=== PATIENT | female | born 2000 | race Two or more races ===

== ENCOUNTER 2024-07-31 20:40 | Outpatient (CLI) | payer OTHER ==
[~2024-07-31] VITALS: Ht 149.9 cm; Wt 57.3 kg
[2024-07-31 21:12] VITALS: BP 115/59
[2024-07-31] MEDS ORDERED: ASPI-428 PO (21:28)
[2024-07-31] MEDS ORDERED: HOME MED LIST COMPLETE! XX SCH (21:30)
[2024-07-31] MEDS: FLUCONAZOLE 100 MG TAB PO ONE (22:06)
== END 2024-07-31 22:00 | disposition home or self-care (01) ==
LOC: M LDO 20:40
PROVIDERS: ATTEND Specialist
DX: O23.592 Infection of other part of genital tract in pregnancy, second trimester (principal); B37.9 Candidiasis, unspecified; Z3A.21 21 weeks gestation of pregnancy
CPT/HCPCS: 76815; G0463

== ENCOUNTER 2024-09-01 15:58 | Emergency (ER) | payer OTHER ==
[~2024-09-01] VITALS: Ht 149.9 cm; Wt 57.6 kg
[~2024-09-01 15:58] MED LIST: ASPI-428 PO
[2024-09-01 16:00] VITALS: BP 120/67; TEMP 98.9; O2SAT 99
[2024-09-01] MEDS ORDERED: CYCL-707 PO (19:24)
== END 2024-09-01 16:15 | disposition admitted as inpatient to this hospital (09) ==
LOC: M ED 15:58
DX: Z53.21 Procedure and treatment not carried out due to patient leaving prior to being seen by health care provider (principal)

== ENCOUNTER 2024-09-01 16:19 | Outpatient (CLI) | payer OTHER ==
[~2024-09-01] VITALS: Ht 149.9 cm; Wt 57.4 kg
[2024-09-01 16:44] VITALS: BP 117/65
[2024-09-01] MEDS ORDERED: HOME MED LIST COMPLETE! XX SCH (16:50)
[2024-09-01] MEDS: ACETAMINOPHEN 500 MG TAB PO ONE (17:04)
[2024-09-01] MEDS: CYCLOBENZAPRINE 10MG TABLET PO ONE (18:16)
[2024-09-01 18:38] LABS: APPEARANCE, URINE CLEAR (CLEAR); BACTERIA, URINE AUTO 1+ (NEGATIVE); BILIRUBIN, URINE AUTO NEGATIVE (NEGATIVE); BLOOD, URINE BLOOD NEGATIVE (NEGATIVE); COLOR, URINE STRAW (YELLOW); GLUCOSE, URINE (UA) AUTO 1+ mg/dL (NEGATIVE); KETONE, URINE AUTO NEGATIVE (NEGATIVE); LEUKOCYTE ESTERASE, URINE AUTO TRACE (NEGATIVE); MUCUS, URINE SMALL (NEGATIVE); NITRITE, URINE AUTO NEGATIVE (NEGATIVE); PROTEIN, URINE AUTO NEGATIVE (NEGATIVE); RBC, URINE AUTO 0 /HPF (0-3); SPECIFIC GRAVITY URINE AUTO 1.008 (1.002-1.035); SQUAMOUS EPITHELIAL CELL UR AU 1 /HPF (0-6); UROBILINOGEN, URINE AUTO 0.2 mg/dL (0.0-2.0); WBC, URINE AUTO 0 /HPF (0-3)
[2024-09-01] MEDS ORDERED: CYCL-707 PO (19:24)
== END 2024-09-01 19:03 | disposition home or self-care (01) ==
LOC: M LDO 16:19
PROVIDERS: ATTEND Advanced Practice Midwife
DX: O26.893 Other specified pregnancy related conditions, third trimester (principal); O26.22 Pregnancy care for patient with recurrent pregnancy loss, second trimester; M54.50 Low back pain, unspecified; M25.551 Pain in right hip; W00.0XXD Fall on same level due to ice and snow, subsequent encounter; Y92.9 Unspecified place or not applicable; Y93.9 Activity, unspecified; Y99.9 Unspecified external cause status; Z3A.24 24 weeks gestation of pregnancy
CPT/HCPCS: 59025; 81001; G0463

== ENCOUNTER 2024-10-02 17:11 | Outpatient (CLI) | payer OTHER ==
[~2024-10-02] VITALS: Ht 149.9 cm; Wt 59.6 kg
[~2024-10-02 17:11] MED LIST changes: +CYCL-707 PO
[2024-10-02] MEDS ORDERED: ACET-897 PO (17:29)
[2024-10-02] MEDS ORDERED: HOME MED LIST COMPLETE! XX SCH (17:30)
[2024-10-02 17:32] VITALS: BP 123/71; O2SAT 100
[2024-10-02 19:47] LABS: APPEARANCE, URINE CLEAR (CLEAR); BACTERIA, URINE AUTO 1+ (NEGATIVE); BILIRUBIN, URINE AUTO NEGATIVE (NEGATIVE); BLOOD, URINE BLOOD NEGATIVE (NEGATIVE); COLOR, URINE YELLOW (YELLOW); GLUCOSE, URINE (UA) AUTO 3+ mg/dL (NEGATIVE); KETONE, URINE AUTO NEGATIVE (NEGATIVE); LEUKOCYTE ESTERASE, URINE AUTO NEGATIVE (NEGATIVE); NITRITE, URINE AUTO NEGATIVE (NEGATIVE); PROTEIN, URINE AUTO NEGATIVE (NEGATIVE); RBC, URINE AUTO 0 /HPF (0-3); SPECIFIC GRAVITY URINE AUTO 1.013 (1.002-1.035); SQUAMOUS EPITHELIAL CELL UR AU 2 /HPF (0-6); UROBILINOGEN, URINE AUTO 0.2 mg/dL (0.0-2.0); WBC, URINE AUTO 0 /HPF (0-3)
[2024-10-02 19:58] VITALS: BP 114/63
[2024-10-02 21:39] LABS: Trichomonas vaginalis (AMP) NOT DETECTED (NEGATIVE)
[2024-10-02 22:02] LABS: GC DNA AMPLIFICATION NEGATIVE (NEGATIVE)
== END 2024-10-02 20:24 | disposition home or self-care (01) ==
LOC: M LDO 17:11
PROVIDERS: ATTEND Obstetrics & Gynecology
DX: O21.2 Late vomiting of pregnancy (principal); O26.893 Other specified pregnancy related conditions, third trimester; O26.23 Pregnancy care for patient with recurrent pregnancy loss, third trimester; N89.8 Other specified noninflammatory disorders of vagina; R19.7 Diarrhea, unspecified; Z3A.29 29 weeks gestation of pregnancy
CPT/HCPCS: 59025; 76815; 81001; 87086; 87661; 87810; 87850; G0463

== ENCOUNTER 2024-10-24 21:23 | Outpatient (CLI) | payer OTHER ==
[~2024-10-24] VITALS: Ht 149.9 cm; Wt 60.9 kg
[~2024-10-24 21:23] MED LIST changes: +ACET-897 PO
[2024-10-24 21:32] VITALS: BP 120/73
[2024-10-24 21:56] VITALS: BP 132/69
[2024-10-24 22:07] VITALS: BP 127/70
[2024-10-24 22:26] LABS: HEMATOCRIT 36.8 % (36.0-47.0); HEMOGLOBIN 11.8 g/dl (12.0-15.5); MEAN CORPUSCULAR HEMOGLOBIN 28.6 pg (27.0-33.0); MEAN CORPUSCULAR HGB CONC 32.1 g/dl (32.0-36.5); MEAN CORPUSCULAR VOLUME 89.3 fl (80.0-96.0); PLATELET COUNT, AUTOMATED 261 10^3/uL (150-450); RED BLOOD COUNT 4.12 10^6/uL (4.00-5.40); WHITE BLOOD COUNT 10.1 10^3/uL (4.0-10.0)
[2024-10-24 22:38] VITALS: BP 115/70
[2024-10-24 22:47] LABS: URIC ACID 4.6 MG/DL (3.1-7.8)
[2024-10-24 22:50] LABS: CREATININE,RANDOM URINE 28.8 MG/DL
[2024-10-24 22:50] LABS: ALT/SGPT 15 U/L (7.0-40); AST/SGOT 14 U/L (<34); BILIRUBIN,TOTAL 0.3 MG/DL (0.3-1.2); CREATININE FOR GFR 0.55 MG/DL (0.55-1.30); GLOMERULAR FILTRATION RATE > 90.0 (>60); LDH LACTATE DEHYDROGENASE 208 U/L (120-246)
[2024-10-24 22:52] LABS: TOTAL PROTEIN,RANDOM URINE < 6.0 MG/DL (0.0-14.0)
[2024-10-24 22:58] VITALS: BP 105/69
== END 2024-10-24 23:42 | disposition home or self-care (01) ==
LOC: M LDO 21:23
PROVIDERS: ATTEND Advanced Practice Midwife
DX: O26.893 Other specified pregnancy related conditions, third trimester (principal); O36.5930 Maternal care for other known or suspected poor fetal growth, third trimester, not applicable or unspecified; O99.893 Other specified diseases and conditions complicating puerperium; R51.9 Headache, unspecified; O21.2 Late vomiting of pregnancy; H53.9 Unspecified visual disturbance; Z87.59 Personal history of other complications of pregnancy, childbirth and the puerperium; Z3A.32 32 weeks gestation of pregnancy
CPT/HCPCS: 36415; 59025; 82247; 82570; 83615; 84156; 84450; 84460; 84550; 85027; G0463

== ENCOUNTER 2025-02-12 21:30 | Emergency (ER) | payer OTHER ==
[~2025-02-12] VITALS: Ht 149.9 cm; Wt 56.4 kg
[2025-02-12 22:29] LABS: SP GRAVITY,URINE MANUAL REFLEX 1.020 (1.002-1.035)
[2025-02-12 22:30] LABS: KETONE, URINE MANUAL REFLEX OBSCURED mg/dL (NEGATIVE); NITRITE, URINE MANUAL RFX OBSCURED (NEGATIVE); PROTEIN, URINE MANUAL REFLEX 3+ mg/dL (NEGATIVE); UROBILINOGEN, UA MANUAL REFLEX OBSCURED mg/dl (NORMAL)
[2025-02-12 22:33] LABS: RBC, URINE MAN REFLEX TNTC /hpf (0-3); SQUAMOUS EPITHELIAL URINE RFX SMALL AMOUNT /hpf (SMALL AMT)
[2025-02-12 22:34] LABS: HYALINE CAST, URINE RFX NONE SEEN /lpf (0-1); MICROSCOPIC EXAM RFX PERFORMED
[2025-02-12 22:44] LABS: BASO # 0.0 10^3/uL (0.0-0.2); BASO % 0.5 % (0.0-1.0); EOS # 0.2 10^3/uL (0.0-0.5); EOS % 3.0 % (0.0-3.0); LYMPH # 2.2 10^3/uL (1.5-5.0); LYMPH % 30.6 % (24.0-44.0); MONO # 0.7 10^3/uL (0.0-0.8); MONO % 9.7 % (2.0-8.0); NEUTROPHILS # 4.1 10^3/uL (1.5-8.5); NEUTROPHILS % 55.9 % (36.0-66.0); PLATELET COUNT, AUTOMATED 330 10^3/uL (150-450)
[2025-02-12 22:51] LABS: CALCIUM LEVEL 9.9 MG/DL (8.5-10.1); CARBON DIOXIDE LEVEL 29 MMOL/L (20-31); CHLORIDE LEVEL 103 MMOL/L (98-107); CREATININE FOR GFR 0.63 MG/DL (0.55-1.30); GLOMERULAR FILTRATION RATE > 90.0 (>60); POTASSIUM SERUM 3.8 MMOL/L (3.5-5.1); SODIUM LEVEL 142 MMOL/L (136-145)
[2025-02-12 22:56] LABS: HCG, SERUM QUALITATIVE NEGATIVE (NEGATIVE)
[2025-02-13 03:28] VITALS: BP 112/67; TEMP 97.3; O2SAT 99
== END 2025-02-13 03:27 | disposition home or self-care (01) ==
LOC: M ED 21:30
DX: O72.1 Other immediate postpartum hemorrhage (principal)

== ENCOUNTER → 2025-04-23 | Outpatient (REF) | payer OTHER ==
[2025-04-23 18:24] LABS: APPEARANCE, URINE CLEAR (CLEAR); BACTERIA, URINE AUTO 1+ (NEGATIVE); BILIRUBIN, URINE AUTO NEGATIVE (NEGATIVE); BLOOD, URINE BLOOD NEGATIVE (NEGATIVE); GLUCOSE, URINE (UA) AUTO NEGATIVE (NEGATIVE); KETONE, URINE AUTO NEGATIVE (NEGATIVE); LEUKOCYTE ESTERASE, URINE AUTO NEGATIVE (NEGATIVE); MUCUS, URINE SMALL (NEGATIVE); NITRITE, URINE AUTO NEGATIVE (NEGATIVE); PROTEIN, URINE AUTO NEGATIVE (NEGATIVE); RBC, URINE AUTO 0 /HPF (0-3); SPECIFIC GRAVITY URINE AUTO 1.030 (1.002-1.035); SQUAMOUS EPITHELIAL CELL UR AU 7 /HPF (0-6); UROBILINOGEN, URINE AUTO 0.2 mg/dL (0.0-2.0); WBC, URINE AUTO 0 /HPF (0-3)
== END ==
LOC: M LAB REF 17:11
PROVIDERS: ATTEND Physician Assistant
DX: N39.0 Urinary tract infection, site not specified (principal)